=== PATIENT | female | born 1970 | race Asian ===

== ENCOUNTER 2023-09-05 23:52 | Emergency (ER) | payer OTHER ==
[2023-09-06 00:10] VITALS: BP 193/125; PULSE 96; RESP 16; TEMP 98.5; BMI 25.4
[2023-09-06] MEDS ORDERED: HYDROCHLOROTHIAZIDE 25 MG TABLET (FP) PO ONE (00:19)
[2023-09-06] MEDS ORDERED: HYDROCHLOROTHIAZIDE 25 MG TABLET (FP) ONE (00:36)
== END 2023-09-06 01:00 | disposition home or self-care (01) ==
LOC: FER 23:52
DX: I10 Essential (primary) hypertension (principal)
CPT/HCPCS: 93005; 99283-25